=== PATIENT | male | born 1990 | race Caucasian/White ===

== ENCOUNTER 2022-10-22 13:57 | Outpatient (AMB) | payer OTHER, MEDICAID, SELFPAY ==
[2022-10-22 14:00] VITALS: BP 146/98; PULSE 83; O2SAT 98; BMI 34.0
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
== END 2022-10-22 14:30 | disposition home or self-care (01) ==
PROVIDERS: Visit Provider Psychiatry & Neurology Neurology
DX: G43.909 Migraine, unspecified, not intractable, without status migrainosus (principal); G89.29 Other chronic pain; M25.512 Pain in left shoulder; M54.2 Cervicalgia; R06.83 Snoring; G47.10 Hypersomnia, unspecified
CPT/HCPCS: 99214

== ENCOUNTER → 2022-10-22 13:57 | Outpatient (BNVA) | payer OTHER, MEDICAID, SELFPAY | PROVIDERS: Visit Provider Psychiatry & Neurology Neurology ==

== ENCOUNTER 2023-12-02 11:23 | Outpatient (AMB) | payer OTHER, MEDICAID, SELFPAY ==
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
[2023-12-02 11:26] VITALS: BP 130/82; PULSE 72; RESP 16; O2SAT 98; BMI 34.2
== END 2023-12-02 11:47 | disposition home or self-care (01) ==
PROVIDERS: PCP Internal Medicine; Visit Provider Psychiatry & Neurology Neurology
DX: R51.9 Headache, unspecified (principal); G89.29 Other chronic pain; G43.909 Migraine, unspecified, not intractable, without status migrainosus; M25.512 Pain in left shoulder; M54.2 Cervicalgia; R06.83 Snoring; G47.10 Hypersomnia, unspecified
CPT/HCPCS: 99214

== ENCOUNTER → 2023-12-02 11:23 | Outpatient (BNVA) | payer OTHER, MEDICAID, SELFPAY | PROVIDERS: PCP Internal Medicine; Visit Provider Psychiatry & Neurology Neurology | DX: R51.9 Headache, unspecified (principal); G89.29 Other chronic pain; G43.909 Migraine, unspecified, not intractable, without status migrainosus; M25.512 Pain in left shoulder; M54.2 Cervicalgia; R06.83 Snoring; G47.10 Hypersomnia, unspecified ==

== ENCOUNTER 2024-11-23 11:32 | Outpatient (AMB) | payer OTHER, MEDICAID, SELFPAY ==
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
[2024-11-23 11:33] VITALS: BP 128/78; PULSE 77; O2SAT 100; BMI 39.2
--- OUTSIDE RECORDS SUMMARY | 2024-11-23 13:13 | XMS_ITS | Encounter Summary ---
Author Organization [facility] Address [address] [place] [address] Phone Care Team Providers Care Engineer Sergeant Name Role Phone López Duffy MD Primary Care Provider + Encounter Details Date Type Department Care Team (Late st Contact Info) Description 10/21/[address], [facility] Imaging - [address], [address] [place] [id number] Social History Tobacco Use Types Packs/Day Years Used Date Smoking Tobacco: Never Smokeless Tobacco: Never Alcohol Use Standard Drinks/Week Comments Not Currently 0 (1 standard drink = 0.6 oz pur e alcohol) Education Answer Date Recorded Are you interested in more education? Not on john e 07/18/2022 Are you concerned about learning? Not on file 07/18/2022 No 07/18/2022 No 07/18/2022 Digital Access Answer Date Recorded No 08/13/2022 No 08/13/2022 Reliable internet access at home? Not on file 08/13/2022 Device with a working camera? Not on file Intimate Partner Violence Answer Date R ecorded Are you denied basic needs s uch as food, clothing, or medical care? No 05/06/2022 In the past 12 months have y ou been in a relationship with a person who hurts, threatens, or tries to control you? No 05/06/2022 Are you denied basic needs s uch as food, clothing, or medical care? No 05/06/2022 In the past 12 months have y ou been in a relationship with a person who hurts, threatens, or tries to control you? No 05/06/2022 Comments No Sex and Gender Information Value Date Recorded Sex Assigned at Female 10/27/2021 3:36 PM EDT Legal Sex Female 3:25 PM EDT Gender Identity Female 10/27/2021 3:36 PM EDT Sexual Orientation Straight 10/27/2021 3: 36 PM EDT documented as of this encounter Plan of Treatment Upcoming Encounters Date Type Department Care Team (Late st Contact Info) Description 02/27/2025 12:15 PM EST Office Visit [facility] Department of Orthopaedic Surgery, Shoulder Service [address] [place] [address], 3rd Floor, [address] [place] [address] Nima Carter MD [address] [place] [phone] [email or web address] documented as of this encounter Visit Diagnoses Not on filedocumented in this encounter Care Teams Engineer Sergeant Relationship Specialty Start Date End Date López Duffy MD [address] [place] [id number] PCP - General Internal Medicine 10/27/21 documented as of this encounter Additional Source Comments The information contained in this document represents components of the legal health record. It is not the complete legal health record.[facility]
--- OUTSIDE RECORDS SUMMARY | 2024-11-23 13:13 | XMS_ITS | Encounter Summary ---
Author Organization [facility] Address [address] [place] [phone] Phone Care Team Providers Care Chemical Applicator Name Role Phone López Duffy MD Primary Care Provider + Encounter Details Date Type Department Care Team (Late st Contact Info) Description 10/21/2023 Procedure Pass [facility] Imaging [address] [place] [phone] Social History Tobacco Use Types Packs/Day Years [...] Description 02/27/2025 12:15 PM EST Office Visit [facility] Department of Orthopaedic Surgery, Shoulder Service [address] [place] [address], 3rd Floor, [address] [place] [address] Nima Carter MD [address] [place] [phone] [email or web address] documented as of this encounter Visit Diagnoses Not on filedocumented in this encounter Care Teams Chemical Applicator Relationship Specialty Start Date End Date López Duffy MD [address] [place] [phone] PCP - General Internal Medicine 10/27/21 documented as of this encounter Additional Source Comments The information contained in this document represents components of the legal health record. It is not the complete legal health record.[facility]
--- OUTSIDE RECORDS SUMMARY | 2024-11-23 13:13 | XMS_ITS | Encounter Summary ---
Author Organization [facility] Address [address] [place] [address] Phone Care Team Providers Care Plant Packer Name Role Phone López Duffy MD Primary Care Provider + Encounter Details Date Type Department Care Team (Late st Contact Info) Description 05/06/2022 Procedure Pass [facility] [address] [place], [place] [phone] Social History Tobacco Use Types Packs/Day Years Used Date Smoking Tobacco: Never Smokeless Tobacco: Never Alcohol Use Standard Drinks/Week Comments Not Currently 0 (1 standard drink = 0.6 oz pur e alcohol) Intimate Partner Violence Answer Date R ecorded [...] Description 02/27/2025 12:15 PM EST Office Visit [facility] Department of Orthopaedic Surgery, Shoulder Service [address] [facility], 3rd Floor, [address] [place] [address] Nima Carter MD [address] [place] [phone] [email or web address] documented as of this encounter Visit Diagnoses Not on filedocumented in this encounter Care Teams Plant Packer Relationship Specialty Start Date End Date López Duffy MD [address] [place] [phone] PCP - General Internal Medicine 10/27/21 documented as of this encounter Additional Source Comments The information contained in this document represents components of the legal health record. It is not the complete legal health record.[facility]
--- OUTSIDE RECORDS SUMMARY | 2024-11-23 13:13 | XMS_ITS | Clinical Summary ---
Author Organization [facility] Address [address] [place] [address] Care Team Providers Care Liquor Department Manager Name Role Phone López Duffy MD Primary Care Provider [phone] Allergies Active Allergy Reactions Criticality Noted Date Comments Passion Fruit 09/01/2021 Medications Medication Sig Dispensed Refills Start Date End Date Status Tjknmxveyd-WFHR-Gurihqu e (Fioricet) 50-300-40 MG CAPS Take by mouth. 0 Active magnesium oxide 400 (240 Mg) MG TABS tablet Take 400 mg by mouth 2 (two) times a day. 0 Active Active Problems Problem Noted Date Diagnosed Date Leukocytosis 10/28/2021 Class 2 obesity 10/28/2021 Depressive disorder 10/28/2021 Hypertension 10/28/2021 Right upper quadrant abdominal pain 10/28/2021 Family History Medical History Relation Name Comments Diabetes Mother Hyperlipidemia Mother Hypertension Mother Relation Name Status Comments Mother Social History Tobacco Use Types Packs/Day Years Used Date Smoking Tobacco: Never Smokeless Tobacco: Never Tobacco Cessation:Counseling Given: Not Answered Alcohol Use Standard Drinks/Week Comments Not Currently 0 (1 standard drink = 0.6 oz pur e alcohol) Sex and Gender Information Value Date Recorded Sex Assigned at Not on file Gender Identity Not on file Sexual Orientation Not on file Job Start Date Occupation Industry Not on file Not on file Not on file Last Filed Vital Signs Vital Sign Reading Time Taken Comments Blood Pressure 167/99 10/09/2022 3:38 PM EDT Pulse 70 10/09/2022 3:38 PM EDT Temperature 36.8 C (98.2 F) 10/09/2022 3:38 PM EDT Respiratory Rate - - Oxygen Saturation 100% 10/09/2022 3:38 PM EDT Inhaled Oxygen Concentration - - Weight 91 kg (200 lb 9.6 oz) 10/09/2022 3:38 PM EDT Height 165.1 cm (5' 5 ) 10/09/2022 3:38 PM EDT Body Mass Index 33.38 10/09/2022 3:38 PM EDT Plan of Treatment Health Maintenance Due Date Last Done Comments Hepatitis C Screening 1991 COVID-19 Vaccine (#1) 1991 Depression Screening 2003 BMI Counseling 2009 Preventative Health Evaluation 2009 Cervical Cancer Screening (Pap Smear) 2012 DTap / Tdap / Td (7 - Td or Tdap) 06/20/2024 06/20/2014, 07/09/2006, 06/20/1992, Additional history exists Influenza Vaccine (#1) 2024 9, 01/09/2010, 12/20/2008 Hepatitis B Vaccines Completed 10/23/1994, 05/14/1994, 03/31/1994 Pneumococcal Vaccine Aged Out No long er eligible based on patient's age to complete this topic RSV Ped < 20 months Aged Out No longe r eligible based on patient's age to complete this topic Care Teams Liquor Department Manager Relationship Specialty Start Date End Date López Duffy MD PCP - General Internal Medicine 08/05/21
--- OUTSIDE RECORDS SUMMARY | 2024-11-23 13:13 | XMS_ITS | Clinical Summary ---
[facility] [address] Building Address [address] [place] [phone] Phone Care Team Providers Care Idea Man Name Role Phone López Duffy MD Primary Care Provider [phone] Allergies Active Allergy Reactions Criticality Noted Date Comments Doxycycline Other 03/03/2022 Pt has pseudo tumor cerebri and if takes Doxy has severe hypertension and severe headaches Passion Fruit Anaphylaxis High 09/01/2021 Passion Fruit Flavor Anaphylaxis,Swelling High 06/17 Medications butalbital-aceta minophen-caffein e 50-300-40 mg capsule Take by mouth. Active EPINEPHrine (EPIPEN) 0.3 mg/0.3 mL injection Inject 0.3 mL (0.3 mg total) into the thigh if needed for anaphylaxis . 1 each 09/13/2024 5 Active Active Problems Problem Noted Date Diagnosed Date White coat syndrome with hig h blood pressure but without hypertension 09/13/2024 Marijuana use 08/31/2022 Chronic left shoulder pain 12/12/2021 Class 2 obesity 10/28/2021 Depressive disorder 10/28/2021 Hypertension 10/28/2021 Leukocytosis 10/28/2021 Right upper quadrant abdominal pain 10/28/2021 Gastroesophageal reflux disease without esophagi tis 10/19/2016 Idiopathic intracranial hypertension 09/19/2016 Morbid obesity (CMS/HCC V24, CMS/FORMERLY [facility] V28) 2015 Cough 03/16/2012 Post-nasal drip 03/16/2012 Migraine 09/08/2011 Syncopal episodes 06/12/2011 Overview (09/13/2024): Multiple occurences throughout adolescence and YA years. 06/12/11: ECHO essentially normal with trace to mild tricuspid reguritation Anxiety 04/14/2011 Encounters Date Type Department Care Team Description 09/13/2024 1:00 PM EDT Office Visit [facility] [address] [facility] [place] [phone] López Duffy MD Adult general medical examination (Primary Dx); White coat syndrome with high blood pressure but without hypertension; Screening for deficiency anemia; Screening for hyperlipidemia; Screening for diabetes mellitus; Screening for thyroid disorder; Depressive disorder 09/13/2024 [facility] Lucinda Diaz MA from Last 3 Months Immunizations Name Administration Dates Next Due [id number] (Pentacel) 2mo to less than 5yo 06/20/1992,1991,1991,1991 HPV, Quadrivalent 01/31/2007,09/13/2006,07/10/19 07 Hepatitis B Pediatric (Enger ix B; Recombivax HB) to less than 20 yo 10/23/1994,05/14/1994,03/31/1994 Influenza trivalent, 0.5mL, preservative free (Fluarix; FluLaval; Fluzone) ages 6mo and older (Afluria) 3 years and older 01/09/2010 Influenza, Unspecified 01/16/2019,12/20/2008 Measles 04/05/1996,06/20/1992 Mumps 04/05/1996,06/20/1992 OPV 1991,1991,1991 Rubella 04/05/1996,06/20/1992 Tdap Tetanus diptheria acell ular pertussis (Boostrix; Adacel) 7yo and older 12/05/2018,06/20/2014,07/09/2006 Varicella live (Varivax) 12m o and older 04/24/1997 Surgical History Surgery Date Site/Laterality Comments SECTION PROCEDURE: MT DELIVERY ONLY; COMMENT: 2008 OTHER SURGICAL HISTORY PROCEDURE: MT TX ECTOPIC W/O SALPING&/OOPHORECTOMY; COMMENT: 2007 CHOLECYSTECTOMY 07/29/2009 PROCEDURE: HISTORICAL CHOLECYSTECTOMY; COMMENT: Dr Rivera Medical History Medical History Date Comments Allergic rhinitis, cause unspecified DX:Allergic rhinitis, cause unspecified Cough 03/16/2012 DX:Cough Post-nasal drip 03/16/2012 DX:Post-nasal dr ip Family History Relation Name Status Comments Brother 1 Alive A&W, speech del ayed Brother 2 Alive A&W, speech del ayed Father Alive scoliosis, smiley ting (seen Neurology) Maternal Grandfather [place]; toño dder [place] (?dx) Maternal Grandmother Alive tortico llis Mother Alive A&W Paternal Grandfather (Age ?young ) ?; when father was 13 Paternal Grandmother Alive ? Sister Alive A&W Social History Tobacco Use Types Packs/Day Years Used Date Smoking Tobacco: Never Smokeless Tobacco: Never Tobacco Cessation:Counseling Given: Not Answered Alcohol Use Standard Drinks/Week Comments No 0 (1 standard drink = 0.6 oz pur e alcohol) Housing Instability Answer Date Recorde d Are you worried that in the next 2 months you may not have stable housing? No 09/06/2024 Food Access & Nutrition Answer Date Rec orded Do you have access to a vari ety of food including fruits and vegetables? Yes 09/06/2024 Access to Healthcare Answer Date Record ed Within the last 3 months, ho w many times did you visit the emergency department for your medical care? 0 09/06/2024 Health Literacy Answer Date Recorded How often do you need to hav e someone help you when you read instructions, pamphlets, or other written material from your doctor or pharmacy? Rarely 09/06/2024 Caregiver: How often do you need to have someone help you when you read instructions, pamphlets, or other written material from your doctor or pharmacy? Not on file 09/06/2024 Financial Risk Answer Date Recorded How hard is it for you to pa y for the very basics like food, housing, medical care, and air conditioning / heating? Somewhat hard 09/06/2024 Transportation Answer Date Recorded Has the lack of transportati on kept you from meetings, work, or from getting things needed for daily living? No Has the lack of transportati on kept you from medical appointments or from getting medications? No 09/06/2024 Social Isolation Answer Date Recorded How often do you feel lonely or isolated from those around you? Sometimes 09/06/2024 Food Risk Answer Date Recorded Within the past 12 months we worried whether our food would run out before we got money to buy more. Never true 09/06/2024 Within the past 12 months th e food we bought just didn't last and we didn't have money to get more. Never true 09/06/2024 Dependent Care Answer Date Recorded Do you need help finding or paying for care for your loved ones. For example, children's tutor or elderly care for an older adult? No 09/06/2024 Education Answer Date Recorded Do you think completing more education or training, like finishing a GED, going to college, or learning a trade, would be helpful for you? No 09/06/2024 Employment and Income Answer Date Recor ded During the last four weeks, have you been actively looking for work? No 09/06/2024 Living Situation Answer Date Recorded What is your living situation? 0 09/06/2024 Comments No Sex and Gender Information Value Date Recorded Sex Assigned at Not on file Legal Sex Female 10:34 PM EST Gender Identity Not on file Sexual Orientation Not on file Obstetrics History Last Filed Vital Signs Vital Sign Reading Time Taken Comments Blood Pressure 157/106 09/13/2024 1:03 PM EDT auto/ pt refused recheck Pulse 78 09/13/2024 1:03 PM EDT Temperature - - Respiratory Rate - - Oxygen Saturation - - Inhaled Oxygen Concentration - - Weight 104 kg (229 lb 11.2 oz) 09/13/2024 1:03 PM EDT Height 165.1 cm (5' 5 ) 09/13/2024 1:03 PM EDT Body Mass Index 38.22 09/13/2024 1:03 PM EDT Plan of Treatment Health Maintenance Due Date Last Done Comments Cervical Cancer Screening: Pap Smear 2012 HIV Screening 02/22/2022 Hepatitis C Screening 02/22/2022 COVID-19 Vaccine ( season) 2024 03/17/2021, 09/09/2020 Influenza Vaccine (#1) 2024 9, 01/09/2010, 12/20/2008 Social Influencers of Health Screening 09/06/2025 09/06/2024 Hypertension/CHF/CAD Annual BMP Blood Test 09/13/2025 09/13/2024 DTaP,Tdap,and Td Vaccines (8 - Td or Tdap) 12/05/2028 12/05/2018, 06/20/2014, 07/09/2006, Additional history exists Cholesterol Screening (Lipid Panel) 09/13/2029 09/13/2024, 07/18/2021 HIB Vaccines Completed 06/20/1992, 08/21, 1991, Additional history exists IPV Vaccines Completed 06/20/1992, 08/21, 1991, Additional history exists Hepatitis B Vaccines Completed 10/23/1994, 05/14/1994, 03/31/1994 Varicella Vaccines Aged Out 04/24/1997 No longer eligible based on patient's age to complete this topic HPV Vaccines Completed 01/31/2007, 08/21, 07/09/2006 Depression Screening Completed 09/06/2024 Hepatitis A Vaccines Aged Out No long er eligible based on patient's age to complete this topic MMR Vaccines Aged Out No longer eligi ble based on patient's age to complete this topic Meningococcal ACWY Vaccine Aged Out N o longer eligible based on patient's age to complete this topic Meningococcal B Vaccine Aged Out No l onger eligible based on patient's age to complete this topic Pneumococcal Vaccine: Pediatrics (0 to 5 Years) and At-Risk Patients (6 to 49 Years) Aged Out No longer eligible based on patient's age to complete this topic RSV Immunization Patients Under 20 months Aged Out No longer eligible based on patient's age to complete this topic Procedures Procedure Name Priority Date/Time Associated Diagnosis Comments COMPLETE BLOOD COUNT Routine 09/13/2024 1:24 PM EDT Screening for deficiency anemia COMPREHENSIVE METABOLIC PANEL Routine 09/13/2024 1:24 PM EDT Screening for diabetes mellitus LIPID PANEL WITH REFLEX TO DIRECT LDL Routine 09/13/2024 1:24 PM EDT Screening for hyperlipidemia THYROID STIMULATING HORMONE WITH REFLEX TO FREE T4 AND FREE T3 Routine 09/13/2024 1:24 PM EDT Screening for thyroid disorder MAGNESIUM Routine 09/13/2024 1:24 PM EDT Depressive disorder VITAMIN D 25 HYDROXY Routine 09/13/2024 1:24 PM EDT Depressive disorder from Last 3 Months Results * Thyroid stimulating hormone with reflex to free t4 and free t3 (09/13/2024 1:24 PM EDT) TSH 1.45 0.40 - 4.00 mcIU/mL LAB CHEMISTRY METHOD 09/13/2024 7:17 PM EDT [facility] Blood Venous blood specimen / Unknown Venipuncture / Unknown 09/13/2024 1:24 PM EDT 09/13/2024 1:24 PM EDT us López Duffy MD LAB BLOOD ORDERABLES Final Res ult [facility] [address] [place] [address], [place] [phone] * Lipid panel with reflex to direct LDL (09/13/2024 1:24 PM EDT) Cholesterol 175 0 - 200 mg/dL LAB CHEMISTRY METHOD 09/13/2024 6:53 PM EDT [facility] Triglycerides 134 0 - 150 mg/dL LAB CHEMISTRY METHOD 09/13/2024 6:53 PM EDT [facility] HDL 56 >=40 mg/dL LAB CHEMISTRY METHOD 09/13/2024 6:53 PM EDT [facility] LDL Calculated 92 0 - 100 mg/dL LAB CHEMISTRY METHOD 09/13/2024 6:53 PM EDT [facility] VLDL Cholesterol Frank 26.8 mg/dL LAB CHEMISTRY METHOD 09/13/2024 6:53 PM EDT [facility] Non HDL Chol. (LDL+VLDL) 119 <145 mg/dL LAB CHEMISTRY METHOD 09/13/2024 6:53 PM EDT [facility] Chol/HDL Ratio 3.1 0.0 - 4.4 LAB CHEMISTRY METHOD 09/13/2024 6:53 PM EDT [facility] Blood Venous blood specimen / Unknown Venipuncture / Unknown 09/13/2024 1:24 PM EDT 09/13/2024 1:24 PM EDT us López Duffy MD LAB BLOOD ORDERABLES Final Res ult Performing Organization Address City/[facility]/ZIP Co de Phone Number [facility] [address] [place] [address], [place] [phone] * Vitamin D 25 hydroxy (09/13/2024 1:24 PM EDT) Vit D, 25-Hydroxy 33.9 30.0 - 80.0 ng/mL LAB CHEMISTRY METHOD 09/13/2024 7:17 PM EDT [facility] Blood Venous blood specimen / Unknown Venipuncture / Unknown 09/13/2024 1:24 PM EDT 09/13/2024 1:24 PM EDT us López Duffy MD LAB BLOOD ORDERABLES Final Res ult Performing Organization Address City/[facility]/ZIP Co de Phone Number [facility] [address] [place] [address], [place] [phone] * (ABNORMAL) Complete blood count (09/13/2024 1:24 PM EDT) WBC 13.4(H) 4.8 - 10.8 K/[facility] HEMETOLOGY METHOD 09/13/2024 6:12 PM EDT [facility] RBC 4.60 3.80 - 4.80 M/[facility] LAB HEMETOLOGY METHOD 09/13/2024 6:12 PM EDT [facility] Hemoglobin 13.6 11.5 - 16.0 g/dL LAB HEMETOLOGY METHOD 09/13/2024 6:12 PM EDT [facility] Hematocrit 41.7 35.0 - 47.0 % LAB HEMETOLOGY METHOD 09/13/2024 6:12 PM EDT [facility] MCV 91.4 79.0 - 98.0 FL LAB HEMETOLOGY METHOD 09/13/2024 6:12 PM EDT [facility] MCH 29.8 27.0 - 32.0 pcg LAB HEMETOLOGY METHOD 09/13/2024 6:12 PM EDT [facility] MCHC 32.6 32.0 - 37.0 g/dL LAB HEMETOLOGY METHOD 09/13[facility]2024 [facility] RDW 12.4 11.0 - 15.0 % LAB HEMETOLOGY METHOD 09/13/2024 6:12 PM EDT [facility] Platelets 410(H) 130 - 400 K/mcL LAB HEMETOLOGY METHOD 09/13/2024 6:12 PM EDT [facility] MPV 10.0 7.0 - 11.0 FL LAB HEMETOLOGY METHOD 09/13/2024 6:12 PM [facility] NRBC 0.0 <1.0 % LAB HEMETOLOGY METHOD 09/13/2024 6:12 PM EDT [facility] NRBC Absolute 0.00 <0.10 K/mcL LAB HEMETOLOGY METHOD 09/13/2024 6:12 PM [facility] Blood Venous blood specimen / Unknown Venipuncture / Unknown 09/13/2024 1:24 PM EDT 09/13/2024 1:24 PM EDT us López Duffy MD LAB BLOOD ORDERABLES Final Res ult Performing Organization Address City/[facility]/ZIP Co de Phone Number [facility] [address] [place] [address], [place] [phone] * Magnesium (09/13/2024 1:24 PM EDT) [facility] Magnesium 2.2 1.9 - 2.6 mg/dL LAB CHEMISTRY METHOD 09/13/2024 6:44 PM EDT [facility] Blood Venous blood specimen / Unknown Venipuncture / Unknown 09/13/2024 1:24 PM EDT 09/13/2024 1:24 PM EDT López Duffy MD LAB BLOOD ORDERABLES Final Res ult Performing Organization Address [facility]/ZIP Co de Phone Number [facility] [address] [place] [address], [place] [phone] * Comprehensive metabolic panel (09/13/2024 1:24 PM EDT) [facility] Sodium 141 133 - 145 mmol/L LAB CHEMISTRY METHOD 09/13/2024 6:53 PM EDT [facility] Potassium 4.0 3.5 - 5.5 mmol/L LAB CHEMISTRY METHOD 09/13/2024 6:53 PM [facility] Chloride 109 96 - 110 mmol/L LAB CHEMISTRY METHOD 09/13/2024 6:53 PM EDT [facility] CO2 25 21 - 32 mmol/L LAB CHEMISTRY METHOD 09/13/2024 6:53 PM EDT [facility] Anion Gap 7 3 - 11 LAB CHEMISTRY METHOD 09/13/2024 6:53 PM [facility] Glucose 99 70 - 100 mg/dL LAB CHEMISTRY METHOD 09/13/2024 6:53 PM [facility] BUN 7 5 - 25 mg/dL LAB CHEMISTRY METHOD 09/13/2024 6:53 PM EDT [facility] Creatinine 0.75 0.50 - 1.10 mg/dL LAB CHEMISTRY METHOD 09/13/2024 6:53 PM EDT [facility] eGFR 108 >=60 mL/min/1. 73m2 LAB CHEMISTRY METHOD 09/13/2024 6:53 PM T [facility] Comment:Calculation based on the Chronic Kidney Disease Epidemiology Collaboration (CKD-EPI) equation refit without adjustment for race. BUN/Creatinine Ratio 9.3 LAB CHEMISTRY METHOD 09/13/2024 6:53 PM T [facility] Calcium 8.6 8.5 - 10.5 mg/dL LAB CHEMISTRY METHOD 09/13/2024 6:53 PM [facility] AST (SGOT) 18 10 - 42 unit/L LAB CHEMISTRY METHOD 09/13/2024 6:53 PM [facility] ALT (SGPT) 42 10 - 60 unit/L LAB CHEMISTRY METHOD 09/13/2024 6:53 PM [facility] Alkaline Phosphatase 113 42 - 121 unit/L LAB CHEMISTRY METHOD 09/13/2024 6:53 PM [facility] Total Protein 7.5 6.0 - 8.0 g/dL LAB CHEMISTRY METHOD 09/13/2024 6:53 PM [facility] Albumin 3.7 3.2 - 5.0 g/dL LAB CHEMISTRY METHOD 09/13/2024 6:53 PM [facility] Total Bilirubin 0.4 0.0 - 1.4 mg/dL LAB CHEMISTRY METHOD 09/13/2024 6:53 PM [facility] Blood Venous blood specimen / Unknown Venipuncture / Unknown 09/13/2024 1:24 PM EDT 09/13/2024 1:24 PM EDT us López Duffy MD LAB BLOOD ORDERABLES Final Res ult [facility] [address] [place] [address], from Last 3 Months Insurance MEDICAID - [place] [employer] Care Teams Idea Man Relationship Specialty Start Date End Date López Duffy MD [address] [place] [phone] PCP - General Internal Medicine 07/27/24
--- OUTSIDE RECORDS SUMMARY | 2024-11-23 13:13 | XMS_ITS | Clinical Summary ---
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 2 Active butalbital-acetamin ophen-caffeine (FIORICET, ESGIC) 50-325-40 mg per tablet Take 2 tablets by mouth as needed. 2 Active lactic xgdi-qlhyvi-efohsck um (PHEXXI) 1.8-1-0.4 % Gel Place vaginally. 4 Active acetaminophen (TYLENOL) 500 MG tablet Take 1,000 mg by mouth every 8 (eight) hours as needed for pain (specific location in comments). Active docusate sodium (COLACE) 100 MG capsule Take 1 capsule (100 mg total) by mouth 2 (two) times a day as needed for mild constipation . 30 capsule 5 Active senna (SENOKOT) 8.6 mg tablet Take 1 tablet by mouth daily as needed for constipation . 14 tablet 5 Active aspirin 81 MG EC tablet Take 1 tablet (81 mg total) by mouth 2 (two) times a day for 28 days. 56 tablet 5 Active ondansetron (ZOFRAN-ODT) 4 MG disintegrating tablet Take 1 tablet (4 mg total) by mouth every 8 (eight) hours as needed for nausea. 10 tablet 5 Active HYDROmorphone (DILAUDID) 4 MG tablet Take 1 tablet (4 mg total) by mouth every 4 (four) hours as needed for pain (specific location in comments). Partial fill ok 30 tablet 5 Active diazePAM (VALIUM) 5 MG tablet Take 1 tablet (5 mg total) by mouth every 8 (eight) hours as needed for other (free text field) (muscle spasm pain). 10 tablet 5 Active Active Problems Problem Noted Date Diagnosed Date Idiopathic intracranial hypertension 03/03/2022 Hypertension 10/28/2021 Obesity with body mass index 30 or greater 12/06 Overview (09/11/2023): Problem added by Discern Expert Encounters Date Type Department Care Team Description 11/16/2024 1:00 PM EDT Office Visit [facility] Department of Orthopaedic Surgery, Shoulder Service [address] [facility], 3rd Floor, [address] [place] [address] Nima Carter MD S/P shoulder surgery (Primary Dx) 11/16/2024 12:45 PM EDT - 11/16/2024 11:59 PM EDT Hospital Encounter [facility] Imaging - Xray, [place] [address] [facility], 3rd [place] [address] Nima Carter MD Discharge Disposition: Home or Self Care 11/15/2024 Orders Only [facility] Department of Orthopaedic Surgery, Shoulder Service [address] [facility], 3rd Floor, [address] [place] [address] Boston Meyer MA S/P shoulder surgery (Primary Dx) 09/28/2024 2:00 PM EDT - 09/28/2024 11:59 PM EDT Hospital Encounter [facility], [facility] - [address] [place] [address] Nima Carter MD Discharge Disposition: Home or Self Care 09/11/2024 Orders Only [facility] Department of Orthopaedic Surgery, Shoulder Service [address] [facility], 3rd Floor, [address] [place] [address] Leela Castaneda FNP 08/31/2024 1:00 PM EDT Office Visit [facility] Department of Orthopaedic Surgery, Shoulder Service [address] [facility], 3rd Floor, [address] [place] [address] Nima Carter MD S/P shoulder surgery (Primary Dx) 08/31/2024 Procedure Pass MRI, [facility] - [address], [address] [place] [address] 08/31/2024 Orders Only [facility] Department of Orthopaedic Surgery, Shoulder Service [address] [facility], 3rd Floor, [address] [place] [address] Shama Prescott MA Pain (Primary Dx) from Last 3 Months Social History Tobacco Use Types Packs/Day Years [...] as food, clothing, or medical care? No 05/15/2024 In the past 12 months have y ou been in a relationship with a person who hurts, threatens, or tries to control you? No 05/15/2024 Are you denied basic needs s uch as food, clothing, or medical care? No 05/15/2024 In the past 12 months have y ou been in a relationship with a person who hurts, threatens, or tries to control you? No 05/15/2024 Comments No Sex and Gender Information Value Date Recorded Sex Assigned at Female 10/27/2021 3:36 PM EDT Legal Sex Female 3:25 PM EDT Gender Identity Female 10/27/2021 3:36 PM EDT Sexual Orientation Straight 10/27/2021 3: 36 PM EDT Last Filed Vital Signs Vital Sign Reading Time Taken Comments Blood Pressure 146/97 05/15/2024 1:00 PM EST Pulse 84 05/15/2024 12:30 PM EST Temperature 37 C (98.6 F) 05/15/2024 12:00 PM EST Respiratory Rate 16 05/15/2024 1:00 PM EST Oxygen Saturation 96% 05/15/2024 1:53 PM EST Inhaled Oxygen Concentration - - Weight 92.1 kg (203 lb) 05/01/2024 9:48 AM EST Height 162.6 cm (5' 4 ) 05/01/2024 9:48 AM EST Body Mass Index 34.84 05/01/2024 9:48 AM EST Plan of Treatment Upcoming Encounters Date Type Department Care Team (Late st Contact Info) Description 02/27/2025 12:15 PM EST Office Visit [facility] Department of Orthopaedic Surgery, Shoulder Service [address] [place] [address], 3rd Floor, [address] [place] [address] Nima Carter MD [address] [place] [phone] [email or web address] Health Maintenance Due Date Last Done Comments DEPRESSION SCREENING 2003 HEPATITIS C SCREENING 2009 HIV ONE-TIME SCREENING (18-6 5 YEARS) 2009 PAP SMEAR 2012 BLOOD PRESSURE 03/12/2024 09/11/2023 INFLUENZA VACCINE (#1) 2024 9, 12/20/2008 COVID-19 VACCINE (2024-2 6 season) 2024 03/17/2021, 09/09/2020 Adult Td,Tdap Booster 12/05/2028 12/05/2018 , 06/20/2014 SMOKING STATUS SCREENING (On ce After 26 Yrs) Completed 05/15/2024 HEPATITIS A VACCINES Aged Out No long er eligible based on patient's age to complete this topic HIB VACCINES Aged Out No longer eligi ble based on patient's age to complete this topic MENINGOCOCCAL VACCINES (ACWY) Aged Out No longer eligible based on patient's age to complete this topic MENINGOCOCCAL VACCINES (B) Aged Out N o longer eligible based on patient's age to complete this topic PNEUMOCOCCAL VACCINES (0-49 years) Aged Out No longer eligible b ased on patient's age to complete this topic Medical Devices Implanted Type Area Manager Van Device Identifier Shelf Expiration Date Model / Serial / Lot Tissue Graft Gte 230x7.5mm Tendon Flexi Allo Posterior Tibialis Frozen [facility] - [id number] Implanted:Qty: 1 on 05/06/2022 by Nima Carter MD at [facility] Left: Shoulder [facility] 10/07/2026 [facility] / [id number] / System Proximal [employer] Implant Kit - [id number] Implanted:Qty: 1 on 05/15/2024 by Nima Carter MD at [facility] Left: Shoulder [employer] 11/19/2028 [id number] / / [id number] Procedures Procedure Name Priority Date/Time Associated Diagnosis Comments XR SHOULDER 2 VIEWS (LEFT) Routine 11/16/2024 1:23 PM EDT S/P shoulder surgery MRI WRIST WITHOUT CONTRAST (RIGHT) Routine 09/28/2024 2:55 PM EDT Pain from Last 3 Months Results * XR SHOULDER 2 VIEWS (LEFT) (11/16/2024 1:23 PM EDT) Anatomical Region Laterality Modality Shoulder Left Computed Radiogr aphy 11/16/2024 3:13 PM EDT Impressions 11/16/2024 5:30 PM EDT No fracture or dislocation. ATTESTATION: Avila Parker as teaching physician, have reviewed the images for this case and if necessary edited the report originally created by Jose Manuel Coronado. Narrative 11/16/2024 5:30 PM EDT XR SHOULDER 2 OR MORE VIEWS (LEFT) Referring clinician's provided indication for this examination in [facility]: Pain; FULL VIEW OF SCAPULA COMPARISON: XR SHOULDER 2 OR MORE VIEWS (LEFT) FINDINGS: No fracture. Mild glenohumeral degenerative changes with a small inferior glenoid rim osteophyte. Normal acromioclavicular joint. Surgical clips projecting over the lower scapula. Procedure Note Avila Drake MD - 11/16/2024 XR SHOULDER 2 OR MORE VIEWS (LEFT) Referring clinician's provided indication for this examination in Epic:Pain; FULL VIEW OF SCAPULA COMPARISON: XR SHOULDER 2 OR MORE VIEWS (LEFT) FINDINGS: No fracture. Mild glenohumeral degenerative changes with a small inferiorglenoid rim osteophyte. Normal acromioclavicular joint. Surgical clipsprojecting over the lower scapula. IMPRESSION: No fracture or dislocation. ATTESTATION: IAvila as teaching physician, have reviewed theimages for this case and if necessary edited the report originally createdby Jose Manuel Coronado. us Nima Carter MD IMG XR UPPER EXTREMITY Eve l Result * MRI WRIST WITHOUT CONTRAST (RIGHT) (09/28/2024 2:55 PM EDT) Anatomical Region Laterality Modality Wrist Right Magnetic Resonan ce 09/29/2024 8:37 AM EDT Impressions 09/29/2024 12:03 PM EDT 1. Intact scapholunate ligament 2. Mild ECU tendinosis without tear. ATTESTATION: IDr. Tyrone as teaching physician, have reviewed the images for this case and if necessary edited the report originally created by Holly March. Narrative 09/29/2024 12:03 PM EDT MRI WRIST WITHOUT CONTRAST (RIGHT) Referring clinician's provided indication for this examination in [facility]: * Wrist pain, persistent, neg xray TECHNIQUE: Multi-sequence, multi-planar MRI of the wrist without intravenous contrast. COMPARISON: None FINDINGS: Ulnar Wrist: Triangular fibrocartilage complex (TFCC) is intact. Mild ECU tendinosis with increased T2 intermediate signal. Mild ECU subluxation. Normal alignment of the distal radioulnar joint. Other Tendons: Normal. Extensor compartments 1-5 are intact. Flexor tendons are intact. Ligaments: Normal. Intact intrinsic and extrinsic ligaments. Normal carpal alignment. Nerves: Normal. Median and ulnar nerves are normal in size, location, and signal intensity. Bone: No fracture, osteonecrosis, or focal lesion. Joints: Normal. No effusion or synovitis. No focal cartilage defect or subchondral edema. Procedure Note Tyrone Bassett MD - 09/29/2024 MRI WRIST WITHOUT CONTRAST (RIGHT) Referring clinician's provided indication for this examination in Epic: *Wrist pain, persistent, neg xray TECHNIQUE: Multi-sequence, multi-planar MRI of the wrist withoutintravenous contrast. COMPARISON: None FINDINGS: Ulnar Wrist: Triangular fibrocartilage complex (TFCC) is intact. Mild ECUtendinosis with increased T2 intermediate signal. Mild ECU subluxation.Normal alignment of the distal radioulnar joint. Other Tendons: Normal. Extensor compartments 1-5 are intact. Flexortendons are intact. Ligaments: Normal. Intact intrinsic and extrinsic ligaments. Normal carpalalignment. Nerves: Normal. Median and ulnar nerves are normal in size, location, andsignal intensity. Bone: No fracture, osteonecrosis, or focal lesion. Joints: Normal. No effusion or synovitis. No focal cartilage defect orsubchondral edema. IMPRESSION: 1. Intact scapholunate ligament 2. Mild ECU tendinosis without tear. ATTESTATION: I, Dr. Tyrone Peguero as teaching physician, have reviewedthe images for this case and if necessary edited the report originallycreated by Holly March. Nima Carter MD IMG MR EXTREMITY Final Resu lt from Last 3 Months [facility] PART A & B [facility] AETNA HMO POS EPO MEDICARE PART A & B [facility] [place] E[place] MEDIC[place] PART A & B [facility] EPO [facility] POS EPO MEDICARE PART A & B [place] EPO MEDICARE PART A & B [facility] AETNA HMO POS EPO MEDICARE PART A & B Care Teams Steel Post Installer Relationship Specialty Start Date End Date López Duffy MD [address] [place] [phone] PCP - General Internal Medicine 10/27/21 Additional Source Comments The information contained in this document represents components of the legal health record. It is not the complete legal health record.[facility]
--- OUTSIDE RECORDS SUMMARY | 2024-11-23 13:13 | XMS_ITS | Clinical Summary ---
Author Organization [facility] Address [address] [place] [address] Care Team Providers Care Program Writer Name Role Phone Unavailable Primary Care Provider Unavailabl e Social History Tobacco Use Types Packs/Day Years Used Date Smoking Tobacco: Never Assessed Comments Unknown Sex and Gender Information Value Date Recorded Sex Assigned at Not on file Legal Sex Female 1:32 PM EDT Gender Identity Not on file Sexual Orientation Not on file Plan of Treatment Health Maintenance Due Date Last Done Comments Hepatitis C Virus Screening 1991 HIV Screening 2004 DTaP/Tdap/Td Vaccines (1 - Tdap) 2010 Hepatitis B Vaccines (1 of 3 - 19+ 3-dose series) 2010 HPV Vaccines (1 - 3-dose SCD M series) 2018 COVID-19 Vaccine (2023-2 5 season) 2023 Pneumococcal Vaccine: Pediat stuart (0-5 Years) and At-Risk Patients (6 to 49 Years) Aged Out No longer eligible b ased on patient's age to complete this topic
--- OUTSIDE RECORDS SUMMARY | 2024-11-23 13:13 | XMS_ITS | Encounter Summary ---
Author Organization [facility] Address [address] [place] [address] Phone Care Team Providers Care R D Intern Name Role Phone López Duffy MD Primary Care Provider + Encounter Details Date Type Department Care Team (Late st Contact Info) Description 08/31/2024 Procedure Pass MRI, [facility] - [address], [address] [place] [phone] Social History Tobacco Use Types Packs/Day Years [...] Description 02/27/2025 12:15 PM EST Office Visit [facility] Department of Orthopaedic Surgery, Shoulder Service [address] [place] [address], 3rd Floor, [address] [place] [address] Nima Carter MD [address] [place] [phone] [email or web address] documented as of this encounter Visit Diagnoses Not on filedocumented in this encounter Care Teams R D Intern Relationship Specialty Start Date End Date López Duffy MD [address] [place] [phone] PCP - General Internal Medicine 10/27/21 documented as of this encounter Additional Source Comments The information contained in this document represents components of the legal health record. It is not the complete legal health record.[facility]
--- OUTSIDE RECORDS SUMMARY | 2024-11-23 13:13 | XMS_ITS | Encounter Summary ---
Author Organization [facility] Address [address] [place] [phone] Phone Care Team Providers Care Basic Combatant Swimmer Name Role Phone López Duffy MD Primary Care Provider + Encounter Details Date Type Department Care Team (Late st Contact Info) Description 05/15/2024 Procedure Pass [facility] [address] [place] [phone] Social History Tobacco Use Types Packs/Day Years [...] Description 02/27/2025 12:15 PM EST Office Visit [facility] Department of Orthopaedic Surgery, Shoulder Service [address] [place] [address], 3rd Floor, [address] [place] [address] Nima Carter MD [address] [place] [phone] [email or web address] [place] documented as of this encounter Visit Diagnoses Not on filedocumented in this encounter Care Teams Basic Combatant Swimmer Relationship Specialty Start Date End Date López Duffy MD [address] [place] [phone] PCP - General Internal Medicine 10/27/21 documented as of this encounter Additional Source Comments The information contained in this document represents components of the legal health record. It is not the complete legal health record.[facility]
--- OUTSIDE RECORDS SUMMARY | 2024-11-23 13:13 | XMS_ITS | Encounter Summary ---
Author Organization [facility] Address [address] [place] [address] Phone Care Team Providers Care Automatic Maintainer Name Role Phone López Duffy MD Primary Care Provider + Encounter Details Date Type Department Care Team (Late st Contact Info) Description 08/12/2022 Procedure Pass MRI, [facility] - [address], [address] [place] [phone] Social History Tobacco Use Types Packs/Day Years [...] Description 02/27/2025 12:15 PM EST Office Visit [facility] Department of Orthopaedic Surgery, Shoulder Service [address] [place] [address], 3rd Floor, [address] [place] [address] Nima Carter MD [address] [place] [phone] [email or web address] documented as of this encounter Visit Diagnoses Not on filedocumented in this encounter Care Teams Automatic Maintainer Relationship Specialty Start Date End Date López Duffy MD [address] [place] [phone] PCP - General Internal Medicine 10/27/21 documented as of this encounter Additional Source Comments The information contained in this document represents components of the legal health record. It is not the complete legal health record.[facility]
--- OUTSIDE RECORDS SUMMARY | 2024-11-23 13:13 | XMS_ITS | Encounter Summary ---
Author Organization [facility] Address [address] [place] [address] Phone Care Team Providers Care Commercial Credit Reviewer Name Role Phone López Duffy MD Primary Care Provider + Encounter Details Date Type Department Care Team (Late st Contact Info) Description 07/21/[address], [facility] - [address], [address] [place] [phone] Social History Tobacco Use Types Packs/Day Years Used Date Smoking Tobacco: Never Smokeless Tobacco: Never Alcohol Use Standard Drinks/Week Comments Not Currently 0 (1 standard drink = 0.6 oz pur e alcohol) Education Answer Date Recorded Are you interested in more education? Not on john e 07/18/2022 Are you concerned about learning? Not on file 07/18/2022 No 07/18/2022 No 07/18/2022 Intimate Partner Violence Answer Date R ecorded [...] Description 02/27/2025 12:15 PM EST Office Visit [facility] Department of Orthopaedic Surgery, Shoulder Service [address] [place] [address], 3rd Floor, [address] [place] [address] Nima Carter MD [address] [phone] [email or web address] documented as of this encounter Visit Diagnoses Not on filedocumented in this encounter Care Teams Commercial Credit Reviewer Relationship Specialty Start Date End Date López Duffy MD [address] [place] [phone] PCP - General Internal Medicine 10/27/21 documented as of this encounter Additional Source Comments The information contained in this document represents components of the legal health record. It is not the complete legal health record.[facility]
--- OUTSIDE RECORDS SUMMARY | 2024-11-23 13:13 | XMS_ITS | Encounter Summary ---
Author Organization [facility] Address [address] [facility] [address] [place] [phone] Phone Care Team Providers Care Textile Machine Operator Name Role Phone López Duffy MD Primary Care Provider + Encounter Details Date Type Department Care Team (Late st Contact Info) Description 07/21/2022 Procedure Pass [facility] [address] [place] [phone] Social History Tobacco Use Types Packs/Day Years [...] Description 02/27/2025 12:15 PM EST Office Visit [facility] Department of Orthopaedic Surgery, Shoulder Service [address], 3rd Floor, [address] [place] [address] Nima Carter MD [address] [phone] [email or web address] documented as of this encounter Visit Diagnoses Not on filedocumented in this encounter Care Teams Textile Machine Operator Relationship Specialty Start Date End Date López Duffy MD [address] [place] [phone] PCP - General Internal Medicine 10/27/21 documented as of this encounter Additional Source Comments The information contained in this document represents components of the legal health record. It is not the complete legal health record.[facility]
--- OUTSIDE RECORDS SUMMARY | 2024-11-23 13:13 | XMS_ITS | Encounter Summary ---
Author Organization [facility] Address [address] [place] [phone] Phone Care Team Providers Care Copy Worker Name Role Phone López Duffy MD Primary Care Provider + Encounter Details Date Type Department Care Team (Late st Contact Info) Description 05/31/2023 Procedure Pass [facility] [address] [place] [phone] Social History Tobacco Use Types Packs/Day Years [...] Description 02/27/2025 12:15 PM EST Office Visit [facility] Department of Orthopaedic Surgery, Shoulder Service [address] [place] [address], 3rd Floor, [address] [place] [address] Nima Carter MD [address] [place] [phone] [email or web address] documented as of this encounter Visit Diagnoses Not on filedocumented in this encounter Care Teams Copy Worker Relationship Specialty Start Date End Date López Duffy MD [address] [place] [phone] PCP - General Internal Medicine 10/27/21 documented as of this encounter Additional Source Comments The information contained in this document represents components of the legal health record. It is not the complete legal health record.[facility]
--- OUTSIDE RECORDS SUMMARY | 2024-11-23 13:13 | XMS_ITS | Clinical Summary ---
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 02/14/2022 Active Butalbital-APAP -Caffeine 50-300-40 MG capsule Take by mouth Active Active Problems Problem Noted Date Diagnosed Date Benign intracranial hypertension 06/24/2023 Benign intracranial hypertension 03/03/2022 Hypertension 10/28/2021 Resolved Problems Problem Noted Date Diagnosed Date Resolved Date Anxiety 06/24/2023 06/24/2023 Family history of autism 06/24/202306/2023 High risk 06/24/2023 06/24/19 24 Homeless 06/24/2023 06/24/2023 RhD negative 06/24/2023 06/24/2023 Depressive disorder 10/28/2021 06/24/19 24 Leukocytosis 10/28/2021 06/24/2023 Obese class II 10/28/2021 06/24/2023 Right upper quadrant pain 10/28/2021 Body mass index 30+ - obesity 12/06/2018 06/24/2023 Overview (06/24/2023): Problem added by Discern Expert Immunizations Immunization Administration Dates Next Due Influenza, Unspecified 01/16/2019,12/20/2008 Tdap 12/05/2018 Family History Medical History Relation Comments Diabetes Mother Hypertension Mother Relation Status Comments Mother Social History Tobacco Use Types Packs/Day Years Used Date Smoking Tobacco: Never Smokeless Tobacco: Never Tobacco Cessation:Counseling Given: No Alcohol Use Standard Drinks/Week Comments Never 0 (1 standard drink = 0.6 oz pur e alcohol) Comments Unknown Sex and Gender Information Value Date Recorded Sex Assigned at Not on file Legal Sex Female 12:33 PM EST Gender Identity Not on file Sexual Orientation Not on file Last Filed Vital Signs Vital Sign Reading Time Taken Comments Blood Pressure 144/86 06/25/2023 10:29 AM EDT Pulse 86 06/25/2023 10:29 AM EDT Temperature - - Respiratory Rate - - Oxygen Saturation 99% 06/25/2023 10:29 AM EDT Inhaled Oxygen Concentration - - Weight 84.8 kg (187 lb) 06/25/2023 10:29 AM EDT Height - - Body Mass Index - - Plan of Treatment Health Maintenance Due Date Last Done Comments Hepatitis B Vaccine (1 of 3 - 19+ 3-dose series) 2010 Pneumococcal Vaccine: Peds ( 0 to 5 Years) and At-Risk Patients (6 to 49 Years) (1 of 2 - PCV) 2010 Influenza Vaccine (#1) 2024 01/16/2019, 2008 Insurance [employer] [place] [employer]
== END 2024-11-23 12:03 | disposition home or self-care (01) ==
LOC: HO.HSMS 11:32
PROVIDERS: PCP Internal Medicine; Visit Provider Psychiatry & Neurology Neurology
DX: G43.009 Migraine without aura, not intractable, without status migrainosus (principal); M25.512 Pain in left shoulder; M54.2 Cervicalgia; R06.83 Snoring; G47.10 Hypersomnia, unspecified
CPT/HCPCS: 99214; G2211